=== PATIENT | female | born 1930 | race Caucasian/White ===

== ENCOUNTER → 2021-01-24 15:38 | Outpatient (CLI) | payer MEDICARE ==
[2019-10-14 10:18] VITALS: BMI 35.6
[~2021-01-24 15:38] MED LIST: BACTRIM 400-801 TAB PO; KLONOPIN1 MG PO; LIPITOR20 MG PO; MYRBETRIQ50 MG PO; NYAMYC60 GM TP; PACERONE200 MG PO; PRISTIQ50 MG PO; SEROQUEL25 MG PO; SYNTHROID50 MCG PO
[2021-01-24 16:35] LABS: BILIRUBIN NEGATIVE (NEGATIVE); KETONE NEGATIVE (NEGATIVE); NITRITE NEGATIVE (NEGATIVE); UROBILINOGEN NORMAL mg/dL (< 2)
== END | disposition home or self-care (01) ==
LOC: D.LABREF 15:38
PROVIDERS: ATTEND Urology
DX: N39.0 Urinary tract infection, site not specified (principal); R33.9 Retention of urine, unspecified